=== PATIENT | female | born 1995 | race Caucasian/White ===

== ENCOUNTER 2024-04-07 16:14 | Emergency (ER) | payer BC, SELFPAY ==
[2024-04-07 16:20] VITALS: BP 112/75
[2024-04-07 16:30] VITALS: BP 112/75
[2024-04-07 17:20] VITALS: BP 108/72
--- NOTE | 2024-04-07 17:48 | ED.GENMED ---
History of Present Illness
General
Chief Complaint: Chest Pain
Time Seen by Provider: 04/07/24 17:15
History of Present Illness
History of Present Illness:
28-year-old female without significant past medical history presenting to the emergency department for chest pain. Patient reports yesterday she had an episode of chest pain, sharp in quality. Pain worse with deep inspiration. Patient reports
underlying anxiety, subsequently had a panic attack notes that she has had panic attacks in the past, however not usually proceeded with chest pain. Today, had another episode of chest pain, on the right side. Pain has since resolved. Denies any
known underlying history of cardiac disease or significant family history. Denies any history of blood clot, recent surgery, recent travel, exogenous estrogen. Denies recent fever, cough. Denies abdominal pain or GI symptoms. Denies additional
acute medical complaints.
Phy Exam
Physical Exam
Physical Exam:
General: Well-appearing, no clinical signs of dehydration, nontoxic and in no acute distress
HEENT: protecting airway
Neck: appears supple
CV: Normal heart rate, regular rhythm, no evidence of cyanosis
Resp: No accessory muscle use, no increased work of breathing, lungs clear to auscultation bilaterally
Abd: Soft and non-distended, no tenderness to palpation
Extremities: No deformities, no swelling, no erythema
Neuro: alert, no focal neurologic deficit
: deferred
Rectal: deferred
Psych: Normal affect
Skin: Intact
Scores
Heart Score for Chest Pain Patients
STEMI patient?: No
History: Slightly or Non-Suspicious
ECG: Normal
Age: </= 45 years
Risk Factors: No Risk Factors
Troponin: </= Normal Limit
Heart Score for Chest Pain Patients: 0
Heart Score Risk: 2.5% MACE over next 6 weeks
Course
Orders/Labs/Results
Orders:
Orders
04/07/24 16:15
Electrocardiogram (*1) Urgent
Reason for Study: Chest Pain
EKG- Treatment ONCE
04/07/24 17:46
CR Chest - 2 Views Urgent
Comment:
Reason For Exam: chest pain
04/07/24 17:48
Complete Blood Count/With Diff Urgent
Comprehensive Metabolic Panel Urgent
D-Dimer Urgent
Troponin I Urgent
Abnormal Lab Results
04/07/24
17:48
MCH 32.0 H pg
(27.0-31.0)
BUN 21 H mg/dl
(7-17)
Albumin 5.1 H g/dl
(3.5-5.0)
04/07/24 17:48
04/07/24 17:48
Vital Signs
Initial and Last Documented VS:
Initial Vital Signs
Temp Pulse BP Pulse Ox
98.4 F 68 112/75 99
04/07/24 16:20 04/07/24 16:20 04/07/24 16:20 04/07/24 16:20
Last Documented Vital Signs
Temp Pulse Resp BP Pulse Ox
97.9 F 57 16 127/73 100
04/07/24 16:30 04/07/24 19:30 04/07/24 19:30 04/07/24 19:30 04/07/24 19:30
MDM/Problems Addressed
MDM/Problems Addressed:
28-year-old female presenting for episode of chest pain yesterday and today. Vital signs on arrival are normal.
On exam patient is well-appearing, no acute comfort. Unremarkable cardiac and pulmonary exam. EKG obtained, nonischemic. Patient without significant cardiac risk factors, without concern for ACS. Patient PERC negative with lower suspicion for
PE. Afebrile, no infectious symptoms with lower suspicion for pneumonia or pulmonary process. Suspect possible anxiety component. Plan for screening laboratory analysis.
19:00 - Patient with undetectable troponin, negative D-dimer. Chest x-ray without acute cardiopulmonary disease. At this time without concern for any serious life threats as etiology of patient's symptoms. Feel stable for discharge with continued
outpatient primary care follow-up. Return precautions discussed and patient verbalized understanding
*EKG
Interpreted by ED Provider?: Yes
EKG Intrepretation Date: 04/07/24
EKG Intrepretation Time: 17:54
Interpretation: normal
Comparison EKG: no comparison EKG present
Heart Rate: 60
Rate: normal
Rhythm: sinus
[place]: normal axis
Interval: normal interval
QRS Pattern: normal QRS
Ischemia: no ischemia
*Critical Care Note
Total Time (30-74mins, 75-104mins- exclusive of procedures): Not Applicable
ED Attending Note
-
Portions of this chart may have been created with voice recognition software.� Occasional wrong word or��sound alike� substitutions may have occurred due to the inherent limitations of voice recognition software.
Discharge Plan
Departure
Patient Disposition: Home (Routine Discharge)
Date of Disposition: 04/07/24
Time of Disposition: 19:07
Patient with high blood pressure during this ER visit?: No
Condition: Good
Discharge Problem:
Chest pain
Instructions: Chest Pain That Is Not Caused by the Heart (DC)
Referrals:
Fletcher Chairez PA [Family Provider] -
Activity Restrictions/Additional Instructions:
You were seen in the emergency department for chest pain
You were found to have normal blood work, chest x-ray imaging, EKG of your heart.
Please continue to follow-up closely with your primary care physician.
Return to the emergency department for any worsening of your symptoms, or any development of chest pain, difficulty breathing, abdominal pain with persistent vomiting and inability to tolerate food or liquid by mouth (concern for dehydration),
weakness, headache or confusion, fever greater than 100.4, or any additional symptoms that are concerning to you.
Thank you for choosing [facility].
Interventions
Interventions:
*Risk Screen - Suicide Last Done: 04/07/24 16:30
*General Assessment Last Done: 04/07/24 17:21
*Neglect/Abuse Screening Last Done: 04/07/24 16:30
*ED COVID-19 Vaccine History Last Done: 04/07/24 16:26
*Nursing Disposition Last Done: 04/07/24 19:38
ED- Cardiac Assessment Last Done: 04/07/24 17:20
Discharge Date and Time
Discharge Date/Time: 04/07/24 19:38
Print Language: THAI
[2024-04-07 18:13] LABS: ALT (SGPT) 18 U/L (0-35); AST (SGOT) 31 U/L (14-36); Albumin 5.1 g/dl (3.5-5.0); Alkaline Phosphatase 68 U/L (38-126); Blood Urea Nitrogen 21 mg/dl (7-17); Calcium 9.8 mg/dl (8.4-10.2); Carbon Dioxide 24 mmol/L (22-30); Chloride 103 mmol/L (98-107); D-Dimer < 0.27 ug/mlFEU (0.00-0.50); Glucose 89 mg/dl (70-99); Sodium 139 mmol/L (135-145); Total Bilirubin 0.6 mg/dl (0.2-1.3); Total Protein 7.9 g/dl (6.3-8.2); eGFR > 60.00
[2024-04-07 18:24] LABS: Troponin I < 0.012 ng/ml
[2024-04-07 18:53] LABS: % Basophils 0.8 % (0-2); % Eosinophils 5.4 % (0-6); % Immature Granulocytes 0.3 % (0-0.5); % Lymphocytes 26.7 % (20.5-51.1); % Monocytes 6.5 % (1.7-9.3); % Neutrophils 60.3 % (42.2-75.2); Absolute Basophils 0.1 10^3/uL (0-0.2); Absolute Eosinophils 0.4 10^3/uL (0-0.7); Absolute Lymphocytes 1.9 10^3/uL (1.2-3.4); Absolute Monocytes 0.5 10^3/uL (0.1-0.6); Absolute Neutrophils 4.4 10^3/uL (1.4-6.5); Hematocrit 40.7 % (37.0-47.0); Hemoglobin 14.3 g/dL (12.0-16.0); Mean Corp Hgb Conc. 35.1 g/dL (33.0-37.0); Mean Corpuscular Volume 91.1 fL (81.0-99.0); Mean Platelet Volume 10.1 fL (7.4-10.4); Nucleated Red Blood Cells % 0 %; Platelet Count 253 10^3/uL (130-400); Red Blood Cell Count 4.47 10^6/uL (4.20-5.40); Red Cell Dist. Width 11.9 % (11.5-14.5); White Blood Cell Count 7.2 10^3/uL (4.8-10.8)
[2024-04-07 19:30] VITALS: BP 127/73
== END 2024-04-07 19:38 | disposition home or self-care (01) ==
LOC: EMR 16:14
PROVIDERS: EMERGENCY PHYSICIAN Student in an Organized Health Care Education/Training Program; FAMILY PHYSICIAN Physician Assistant
DX: R07.89 Other chest pain (principal)
CPT/HCPCS: 99285; 71046; 80053; 84484; 85025; 85379; 93005

== ENCOUNTER → 2024-06-27 10:06 | Outpatient (REF) | payer BC, SELFPAY ==
[2024-06-27 10:50] LABS: % Basophils 0.9 % (0-2); % Eosinophils 2.7 % (0-6); % Immature Granulocytes 0.4 % (0-0.5); % Lymphocytes 21.7 % (20.5-51.1); % Monocytes 7.6 % (1.7-9.3); % Neutrophils 66.7 % (42.2-75.2); Absolute Basophils 0.1 10^3/uL (0-0.2); Absolute Eosinophils 0.2 10^3/uL (0-0.7); Absolute Lymphocytes 1.5 10^3/uL (1.2-3.4); Absolute Monocytes 0.5 10^3/uL (0.1-0.6); Absolute Neutrophils 4.6 10^3/uL (1.4-6.5); Hemoglobin 14.8 g/dL (12.0-16.0); Mean Corp Hgb Conc. 33.6 g/dL (33.0-37.0); Mean Corpuscular Hgb 31.5 pg (27.0-31.0); Mean Corpuscular Volume 93.6 fL (81.0-99.0); Mean Platelet Volume 10.4 fL (7.4-10.4); Nucleated Red Blood Cells % 0 %; Platelet Count 250 10^3/uL (130-400)
[2024-06-27 11:55] LABS: ALT (SGPT) 15 U/L (0-35); AST (SGOT) 24 U/L (14-36); Albumin 5.4 g/dl (3.5-5.0); Alkaline Phosphatase 58 U/L (38-126); Calcium 9.6 mg/dl (8.4-10.2); Carbon Dioxide 27 mmol/L (22-30); Chloride 100 mmol/L (98-107); Glucose 82 mg/dl (70-99); Potassium 4.8 mmol/L (3.5-5.1); Sodium 139 mmol/L (135-145); Total Bilirubin 1.4 mg/dl (0.2-1.3); Total Cholesterol 197 mg/dl (50-199); Total Protein 8.6 g/dl (6.3-8.2); Triglyceride 51 mg/dl (10-149); Very Low Density Lipoprotein 10 mg/dl (0-30); eGFR > 60.00
[2024-06-27 12:11] LABS: Blood Urea Nitrogen 13 mg/dl (7-17); HDL Cholesterol 113 mg/dl; LDL Cholesterol, Calculated 74 mg/dl
[2024-06-27 12:22] LABS: TSH Reflex To Free T4 1.05 uIU/ml (0.47-4.68)
== END ==
LOC: REG 10:06
PROVIDERS: ATTENDING PHYSICIAN Physician Assistant
DX: Z00.00 Encounter for general adult medical examination without abnormal findings (principal); F41.9 Anxiety disorder, unspecified
CPT/HCPCS: 36415; 80053; 80061; 84443; 85025